=== PATIENT | female | born 1985 | race Caucasian/White ===

== ENCOUNTER → 2017-12-05 | Outpatient (CLI) | payer BC | END | disposition home or self-care (01) | LOC: C.LABSPEC 14:30 | PROVIDERS: ATTEND Obstetrics & Gynecology | DX: Z34.81 Encounter for supervision of other normal pregnancy, first trimester (principal); Z3A.00 Weeks of gestation of pregnancy not specified ==

== ENCOUNTER → 2017-12-05 | Outpatient (CLI) | payer BC | END | disposition home or self-care (01) | LOC: C.PAPS 14:37 | PROVIDERS: ATTEND Obstetrics & Gynecology | DX: Z34.81 Encounter for supervision of other normal pregnancy, first trimester (principal); Z3A.00 Weeks of gestation of pregnancy not specified ==

== ENCOUNTER → 2018-02-09 | Outpatient (CLI) | payer BC ==
[2018-02-09 12:13] LABS: BASO % 0.4 %; BASO ABS # 0.03 K/uL (0-0.2); EOS % 0.4 %; EOS ABS # 0.03 K/uL (0-0.5); HEMATOCRIT 39.7 % (37-47); HEMOGLOBIN 13.7 g/dL (12.0-16.0); IG# 0.02 K/uL (0.00-0.02); LYMPH % 12.7 %; LYMPH ABS # 1.05 K/uL (1.2-3.4); MEAN CORPUSCULAR HEMOGLOBIN 30.7 pg (25-34); MEAN CORPUSCULAR HGB CONC 34.5 g/dl (32-36); MONO % 4.4 %; MONO ABS # 0.36 K/uL (0.11-0.59); NEUT % 81.9 %; NEUT ABS # 6.75 K/uL (1.4-6.5); PLATELET COUNT 220 K/uL (130-400); RED CELL DISTRIBUTION WIDTH SD 41.7 fL (36.4-46.3); WHITE BLOOD COUNT 8.24 K/uL (4.8-10.8)
== END | disposition home or self-care (01) ==
LOC: C.LAB1850 08:34
PROVIDERS: ATTEND Obstetrics & Gynecology
DX: Z34.02 Encounter for supervision of normal first pregnancy, second trimester (principal)

== ENCOUNTER 2018-03-25 11:18 | Emergency (ER) | payer BC ==
[~2018-03-25] VITALS: Ht 154.9 cm; Wt 76.2 kg
[2018-03-25 11:22] VITALS: TEMP 36.6; Ht 154.9 cm; Wt 76.2 kg
[2018-03-25] MEDS ORDERED: ONDANSETRON INJ 2 MG/ML 2 ML VIAL IV STA (11:39)
[2018-03-25] MEDS ORDERED: SODIUM CHLORIDE 0.9% 1000ML 1,000 ML IV STA (11:39)
[2018-03-25 12:08] LABS: BASO % 0.1 %; BASO ABS # 0.01 K/uL (0-0.2); EOS % 0.1 %; EOS ABS # 0.01 K/uL (0-0.5); HEMATOCRIT 35.9 % (37-47); IG# 0.02 K/uL (0.00-0.02); LYMPH % 10.5 %; LYMPH ABS # 1.08 K/uL (1.2-3.4); MEAN CELL VOLUME 88.4 fL (80-100); MEAN CORPUSCULAR HGB CONC 36.2 g/dl (32-36); MEAN PLATELET VOLUME 10.3 fL (7.4-10.4); MONO % 6.1 %; MONO ABS # 0.63 K/uL (0.11-0.59); NEUT ABS # 8.55 K/uL (1.4-6.5); PLATELET COUNT 210 K/uL (130-400); RED CELL DISTRIBUTION WIDTH CV 13.1 % (11.5-14.5); RED CELL DISTRIBUTION WIDTH SD 42.5 fL (36.4-46.3)
[2018-03-25] MEDS ORDERED: [UNRECOGNIZED DRUG - CODE] PO (12:41)
[2018-03-25] MEDS ORDERED: SERT50TA PO (12:41)
[2018-03-25] MEDS ORDERED: ZOLP5TAB PO (12:41)
[2018-03-25] MEDS ORDERED: PRENTAB26 PO (12:41)
[2018-03-25 12:49] LABS: CALCIUM 9.2 mg/dl (8.5-10.1); CREATININE 0.74 mg/dl (0.60-1.20); POTASSIUM 3.4 mmol/L (3.5-5.1)
[2018-03-25] MEDS ORDERED: BUSP1TAB46 PO (13:10)
[2018-03-25] MEDS ORDERED: ONDA4TAB10 SL (13:11)
[2018-03-25 13:12] VITALS: BP 115/74; PULSE 75; O2SAT 96
--- NOTE | 2018-03-25 13:13 | EMERGENCY ROOM VISIT NOTE ---
History First contact with patient: 11:28 Chief Complaint: ANXIETY Stated Complaint: SEVERE ANXIETY,CAN'T EAT OR SLEEP WELL History of Present Illness The patient is a 32 year old 23 week female who presents to the Emergency Room with complaints of severe anxiety. The patient states that she has a long-standing history of anxiety for which she was on Paxil prior to becoming . She was weaned off the Paxil when she found out she was . The patient states that she did pretty well weaning herself off the Paxil. And was doing fine for a period of time but over the past week her anxiety has increased. She is not able to sleep and over the past 4 days she feels like she cannot eat anything. She is concerned for the baby. Patient states that she becomes tearful when she thinks about what it might due to her baby. She denies any suicidal homicidal ideations. The patient went to her OB/ [facility]OKER[facility] COORDINATOR on due to her current symptoms. They prescribed her Ambien to help her sleep and started her on Zoloft. The patient states that over the past 2 nights she has been able to sleep using the Ambien. She has slept 4-5 hours on night and 6 hours last night. The patient states she did not mention to the RIGGER CHIEF about her nausea. Therefore she does not have anything for nausea. Patient does admit that this morning she took an Ativan that she had at home for her anxiety. She knows she is not supposed to take that in . The patient denies any personal history of thyroid disorder although there is a family history of thyroid disorder. The patient denies any chest pain, shortness of breath or abdominal pain. Review of Systems 10 system review was performed and was negative unless stated otherwise history of present illness. Past Medical/Surgical History Anxiety Social History Smoking Status: Never Smoker Smokeless Tobacco Use: No Alcohol Use: none Drug Use: none Marital Status: single Housing Status: lives with family Current/Historical Medications Scheduled Fish Oil-Cholecalciferol (Viola-3 & Vitamin D3 Ruddy), 1 CAP PO DAILY Multivit/Min/Iron/Fol Ac/Pren ( Vitamin), 1 TAB PO DAILY Sertraline (Zoloft), 50 MG PO DAILY Scheduled PRN Zolpidem Tartrate (Ambien), 5 MG PO HS PRN for Sleep Physical Exam Vital Signs Date Time Temp Pulse Resp B/P (MAP) Pulse Ox O2 Delivery O2 Flow Rate FiO2 03/25/18 11:22 36.6 102 18 104/65 95 Room Air Physical Exam GENERAL: 32-year-old white female who is 23 weeks appears upset in the exam room. She is tearful at times. MENTAL Status: Patient is alert and oriented 3. The patient is very anxious and yet tearful at times. Her thought process is good. MOUTH: Mucosa is moist NECK: Supple, no lymphadenopathy noted. No carotid bruits noted. Thyroid without enlargement or nodularity. LUNGS: Clear auscultation without wheezes rales or rhonchi. CARDIAC: Regular rate and rhythm without murmur. Pulses is full and equal throughout. BACK: No CVA tenderness noted. ABDOMEN: Positive bowel sounds all 4 quadrants. Firm consistent with . No palpable other masses noted. Nontender to palpation. EXTREMITIES: No cyanosis or edema noted. Medical Decision & Procedures Laboratory Results 03/25/18 11:53 Red Blood Count 4.06, Mean Corpuscular Volume 88.4, Mean Corpuscular Hemoglobin 32.0, Mean Corpuscular Hemoglobin Concent 36.2, Mean Platelet Volume 10.3, Neutrophils (%) (Auto) 83.0, Lymphocytes (%) (Auto) 10.5, Monocytes (%) (Auto) 6.1, Eosinophils (%) (Auto) 0.1, Basophils (%) (Auto) 0.1, Neutrophils # (Auto) 8.55, Lymphocytes # (Auto) 1.08, Monocytes # (Auto) 0.63, Eosinophils # (Auto) 0.01, Basophils # (Auto) 0.01 03/25/18 11:53 Test 03/25/18 11:53 White Blood Count 10.30 K/uL (4.8-10.8) Red Blood Count 4.06 M/uL (4.2-5.4) Hemoglobin 13.0 g/dL (12.0-16.0) Hematocrit 35.9 % (37-47) Mean Corpuscular Volume 88.4 fL (80-100) Mean Corpuscular Hemoglobin 32.0 pg (25-34) Mean Corpuscular Hemoglobin Concent 36.2 g/dl (32-36) Platelet Count 210 K/uL (130-400) Mean Platelet Volume 10.3 fL (7.4-10.4) Neutrophils (%) (Auto) 83.0 % Lymphocytes (%) (Auto) 10.5 % Monocytes (%) (Auto) 6.1 % Eosinophils (%) (Auto) 0.1 % Basophils (%) (Auto) 0.1 % Neutrophils # (Auto) 8.55 K/uL (1.4-6.5) Lymphocytes # (Auto) 1.08 K/uL (1.2-3.4) Monocytes # (Auto) 0.63 K/uL (0.11-0.59) Eosinophils # (Auto) 0.01 K/uL (0-0.5) Basophils # (Auto) 0.01 K/uL (0-0.2) RDW Standard Deviation 42.5 fL (36.4-46.3) RDW Coefficient of Variation 13.1 % (11.5-14.5) Immature Granulocyte % (Auto) 0.2 % Immature Granulocyte # (Auto) 0.02 K/uL (0.00-0.02) Anion Gap 4.0 mmol/L (3-11) Est Creatinine Clear Calc Drug Dose 100.0 ml/min Estimated GFR () 122.5 Estimated GFR (Non- 105.7 BUN/Creatinine Ratio 7.3 (10-20) Calcium Level 9.2 mg/dl (8.5-10.1) Thyroid Stimulating Hormone (TSH) 2.400 uIu/ml (0.300-4.500) Free Thyroxine 1.18 ng/dl (0.80-1.60) Medications Administered Medications (Trade) Dose Ordered Sig/Vaibhav Route Start Time Stop Time Status Last Admin Dose Admin Sodium Chloride 1,000 ml @ 999 mls/hr Q1H1M STAT IV 03/25/18 11:39 03/25/18 12:39 DC 03/25/18 11:56 999 MLS/HR Ondansetron HCl (Zofran Inj) 4 mg NOW STAT IV 03/25/18 11:39 03/25/18 11:41 DC 03/25/18 11:57 4 MG Buspirone HCl (Buspar Tab) 7.5 mg NOW STAT PO 03/25/18 11:46 03/25/18 11:47 DC 03/25/18 12:03 7.5 MG ED Course The patient was evaluated. IV access was obtained. The patient was given 1 L normal saline wide open. She was given Zofran 4 mg IV push for nausea. She was also given BuSpar 7.5 mg p.o. I discussed with the patient that this is a category B in and therefore is fairly safe. I informed her that this is the same category as antibiotics. She verbalized understanding. CBC and differential, renal profile, TSH and free T4 was ordered. heart tones were audible. Labs are reviewed and were unremarkable. Thyroid studies were normal. The patient was feeling better after receiving the BuSpar. She was not tearful when I talk with her. She states she still felt anxious but was improved. The patient was discharged home in stable condition. Medical Decision The patient presented with anxiety for which she was already under the care of her RIGGER CHIEF. Zoloft that she was prescribed takes weeks to take effect therefore she was given something that works immediately which did give her some relief. I feel she needs to stay on this until the Zoloft becomes therapeutic. She will discuss this with her RIGGER CHIEF on Tuesday when she has an another appointment with them. [place] Drug Monitoring Program Search Results: patient reviewed within database Medication Reconcilliation Current Medication List: was personally reviewed by me Blood Pressure Screening Patient's blood pressure: Normal blood pressure Impression Primary Impression: Acute anxiety Departure Information Dispostion Home / Self-Care Condition GOOD Prescriptions Ondasetron Odt (ZOFRAN ODT) 4 Mg Tab 4 MG SL Q6H for Nausea, #20 TAB Prov: Bianca Martines PA-C 03/25/18 Buspirone Hcl (BUSPIRONE HCL) 7.5 Mg Tab 1 TAB PO BID for Anxiety/Agitation for 30 Days, #60 TABS Prov: Bianca Martines PA-C 03/25/18 Referrals Lea Stout DO (PCP) Forms HOME CARE DOCUMENTATION FORM, IMPORTANT VISIT INFORMATION Patient Instructions Anxiety Disorder, My [facility] Additional Instructions Take the buspirone as directed. If you are still feeling anxious speak with your RIGGER CHIEF on Tuesday about increasing the dose. Continue other medications, Zoloft and Ambien as prescribed by her RIGGER CHIEF. Take Zofran as needed for nausea. If symptoms persist or worsen, return to ER.
== END 2018-03-25 13:20 | disposition home or self-care (01) ==
LOC: C.EDB 11:20 → C.EDC 13:20
DX: O99.342 Other mental disorders complicating pregnancy, second trimester (principal); F41.9 Anxiety disorder, unspecified; Z3A.23 23 weeks gestation of pregnancy

== ENCOUNTER → 2018-06-23 | Outpatient (CLI) | payer BC ==
[~2018-06-23] MED LIST: ONDA4TAB10 SL; PRENTAB26 PO; SERT50TA PO; ZOLP5TAB PO; [UNRECOGNIZED DRUG - CODE] PO
== END | disposition home or self-care (01) ==
LOC: C.LABSPEC 14:46
PROVIDERS: ATTEND Obstetrics & Gynecology
DX: O09.513 Supervision of elderly primigravida, third trimester (principal)

== ENCOUNTER 2018-07-17 06:05 | Outpatient (CLI) | payer BC ==
[~2018-07-17] VITALS: Ht 154.9 cm; Wt 80.5 kg
[2018-07-17] MEDS ORDERED: SERT50TA PO (06:47)
[2018-07-17 06:49] VITALS: Ht 154.9 cm; Wt 80.5 kg
--- NOTE | 2018-07-17 09:38 | DISCHARGE SUMMARY ---
CHIEF COMPLAINT: Decreased movement, bloody discharge. HISTORY OF PRESENT ILLNESS: The patient is a 33-year-old 1, para 0. General health is good. She is on meds for depression. Other than that, she has had an uneventful course. Her due date is 07/23/2018. She claims that she had decreased movement the day prior to admission and came in unannounced to maternity with some light bloody vaginal discharge. She is also starting occasional cramps. She was placed on the monitor and also evaluated with ultrasound. PAST MEDICAL HISTORY: ALLERGIES: SHE IS ALLERGIC TO PENICILLIN. PAST SURGICAL HISTORY: She has a wisdom teeth removed. MEDICAL HISTORY: She is on Zoloft for depression. SOCIAL HISTORY: No smoking, no alcohol intake. She is employed in the real estate. FAMILY HISTORY: Mom is 55 in good health. Father is 76 in good health. She has 7 half brothers and sisters, all of whom are in good health. REVIEW OF SYSTEMS: HEAD: No symptoms of frequent or severe headaches. EYES: No symptoms of blurred vision or double vision. EARS: No symptoms of frequent ear infections, difficulty hearing. PHYSICAL EXAMINATION: GENERAL: Well-developed, well-nourished 33-year-old white female, alert, oriented x3 and cooperative, in no acute distress, appears stated age. HEART: Had regular rhythm. S1, S2 are normal. LUNGS: Clear to auscultation and percussion. ABDOMEN: Soft. EXTREMITIES: No contractions palpable. Size was consistent with a term , no CVA tenderness. No calf tenderness. PELVIC EXAM: Revealed a very light bloody vaginal discharge. Cervix was posterior, about 50% effaced, closed, was a vertex, at -3 station. IMPRESSIONS OF THIS CASE: Decreased movement and false labor.
--- NOTE | 2018-07-17 09:42 | DIAGNOSTIC IMAGING REPORT ---
ULTRASOUND LIMITED CLINICAL HISTORY: Vaginal bleeding. COMPARISON STUDY: No priors. FINDINGS: Real-time, grayscale, and color Doppler sonography of the fetus and gravid uterus is performed. There is a single live intrauterine gestation with an estimated heart rate of 115 bpm. The head circumference measures 32.56 cm, corresponding to an estimated age of 36 weeks 6 days. Positioning is cephalic. The cervix is not well-visualized. The placenta is anterior with no abnormality identified. The amniotic fluid index measures 11.1 cm. Hydronephrosis of the right kidney is suggested. The bladder appears distended. IMPRESSION: 1. There is a single live intrauterine gestation with an estimated age of 36 weeks 6 days by head circumference measurement. 2. Right-sided hydronephrosis is suggested. Note that this does not constitute a dedicated anatomic scan. Dictated: 07/17/2018 9:07 AM Transcribed: 07/17/2018 9:41 AM [facility] Electronically signed by: Ray Birmingham M.D. 07/17/2018 9:46 AM Dictated Date/Time: 07/17/2018 9:07 AM
== END 2018-07-17 09:25 | disposition home or self-care (01) ==
LOC: C.OPB 06:05 → C.LD 06:05 → C.OPB 09:25
PROVIDERS: ATTEND Obstetrics & Gynecology
DX: O47.1 False labor at or after 37 completed weeks of gestation (principal); O36.8130 Decreased fetal movements, third trimester, not applicable or unspecified; O09.513 Supervision of elderly primigravida, third trimester; O99.343 Other mental disorders complicating pregnancy, third trimester; F32.9 Major depressive disorder, single episode, unspecified; Z3A.39 39 weeks gestation of pregnancy